=== PATIENT | female | born 1960 | race Caucasian/White ===

== ENCOUNTER 2019-12-21 16:59 | Emergency (ER) | payer OTHER ==
[2019-12-21 17:14] VITALS: BMI 24.2
[2019-12-21] MEDS ORDERED: KETOROLAC TROMETHAMINE 30 MG/1 ML VIAL IVPUSH ONE (17:42)
[2019-12-21] MEDS ORDERED: SODIUM CHLORIDE 1,000 ML IV STA (17:42)
--- NOTE | 2019-12-21 17:49 | PDOC ---
History of Present Illness - General Chief Complaint: Pain Stated Complaint: PAIN Time Seen by Provider: 12/21/19 17:23 History Source: Patient - History of Present Illness Timing/Duration: reports: getting worse Abdominal Pain Onset Location: reports: flank Past History - Medical History Allergies/Adverse Reactions: Allergies Allergy/AdvReac Type Severity Reaction Status Date / Time No Known Allergies Allergy Verified 12/21/19 17:09 Home Medications: Ambulatory Orders Cyclobenzaprine HCl [Flexeril 10 mg] 10 mg PO HS #9 tablet 12/21/19 Naproxen 500 mg PO BID #14 tablet 12/21/19 COPD: No Kidney Stones: Yes Seizures: Yes (hypo) - Psycho-Social/Smoking History Smoking History: Never smoked Have you smoked in the past 12 months: No - Substance Abuse Hx (Audit-C & DAST Scrn) How often the patient has a drink containing alcohol: Never Score: In Men: 4 or > Positive; In Women: 3 or > Positive: 0 Screen Result (Pos requires Nsg. Audit-10AR): Negative In the last yr the pt used illegal drug/Rx for NonMed reason: No Score: Yes response is considered Positive: 0 Screen Result (Positive result requires Nsg. DAST-10): Negative Review of Systems - Review of Systems Constitutional: No: Chills, Fever ABD/GI: No: Constipated, Diarrhea, Nausea, Vomiting : Yes: Flank Pain. No: Burning, Dysuria, Hematuria *Physical Exam - Vital Signs Last Vital Signs Temp Pulse Resp BP Pulse Ox 98.2 F 70 18 153/102 H 100 12/21/19 17:10 12/21/19 17:10 12/21/19 17:10 12/21/19 17:10 12/21/19 17:10 - Physical Exam General Appearance: Yes: Appropriately Dressed, Mild Distress HEENT: positive: Normal Voice Neck: positive: Supple Respiratory/Chest: negative: Respiratory Distress Gastrointestinal/Abdominal: positive: Normal Bowel Sounds, Tender (poorly localized ttp L flank), Soft. negative: Distended, Guarding, Rebound Musculoskeletal: negative: CVA Tenderness, Vertebral Tenderness Integumentary: positive: Dry, Warm Neurologic: positive: Fully Oriented, Alert, Normal Mood/Affect ED Treatment Course - LABORATORY CBC & Chemistry Diagram: 12/21/19 18:00 12/21/19 17:59 - RADIOLOGY Radiology Studies Ordered: Category Date Time Status ABDOMEN & PELVIS CT W/O CONTR [CT] Stat CT Scan 12/21/19 17:42 Ordered Medical Decision Making - Medical Decision Making 12/21/19 17:44 59-year-old female, s/p remote lumbar spine surgery, chronic LBP, thyroid disease, complicated renal stone 3 years ago needing lithotripsy, here with worsening L lower/flank pain for 3 days, more c/w her renal stone vs her chronic LBP though does report that back pain usually on the L side. No dysuria, h ematuria, nausea, vomiting fever or chills. No sensory or neuro changes see exam R/o recurrent renal stone, possible acute on chronic LBP BP elevated, possibly 2/2 pain, will rpt after pain control -pain control -IVF -labs -CT 12/21/19 19:56 Lab unremarkable, UA pending. CT read as no ureteral stone, hydro or diverticulitis, does show non-obs stone in R kidney. Pt given results, reports feeling better at this time w/ meds. Will check UA. Anticipate dc w/ pain control and pmd f/u 12/21/19 20:29 UA w/ 3+ bld, no e/o infection. Stable for dc Discharge - Discharge Information Problems reviewed: Yes Clinical Impression/Diagnosis: Flank pain Condition: Improved Disposition: HOME - Additional Discharge Information Prescriptions: Cyclobenzaprine HCl [Flexeril 10 mg] 10 mg PO HS #9 tablet Naproxen 500 mg PO BID #14 tablet - Follow up/Referral Referrals: Joseph Valdez MD [Primary Care Provider] - - Patient Discharge Instructions Additional Instructions: The cause of your back pain is unclear at this time as your labs, urine and CT did not show any cause for pain Pain might be muscular or related to back issues in the past Take medication as directed and follow-up with your PMD - Post Discharge Activity
[2019-12-21] MEDS ORDERED: KETOROLAC TROMETHAMINE 30 MG/1 ML VIAL ONE (18:00)
[2019-12-21 18:21] LABS: BASO % 0.1 % (0-2.0); EOS % 0.8 % (0-4.5); HEMATOCRIT 39.9 % (32.4-45.2); HEMOGLOBIN 13.2 GM/dL (10.7-15.3); LYMPH % 38.6 % (8-40); MCH 28.3 pg (25.7-33.7); MCHC 33.1 g/dl (32.0-36.0); MEAN CELL VOLUME 85.6 fl (80-96); MEAN PLT VOLUME 7.7 fl (7.5-11.1); MONO % 6.2 % (3.8-10.2); NEUT % 54.3 % (42.8-82.8); PLATELET COUNT 291 K/MM3 (134-434); RBC 4.67 M/mm3 (3.60-5.2); RDW 13.8 % (11.6-15.6); WHITE BLOOD COUNT 5.9 K/mm3 (4.0-10.0)
[2019-12-21 18:43] LABS: ALBUMIN 4.1 g/dl (3.4-5.0); BILIRUBIN,TOTAL 0.2 mg/dL (0.2-1); BLOOD UREA NITROGEN 13.9 mg/dL (7-18); CALCIUM 9.4 mg/dL (8.5-10.1); CREATININE 0.7 mg/dL (0.55-1.3); POTASSIUM 3.9 mmol/L (3.5-5.1); TOT PROT 7.5 g/dl (6.4-8.2)
[2019-12-21 18:56] VITALS: BP 163/89; PULSE 69; TEMP 97.5
[2019-12-21] MEDS ORDERED: morphine CARPU-JECT 4 MG/1 ML DISP.SYRIN IVPUSH ONE (19:34)
[2019-12-21] MEDS ORDERED: MORPHINE SULFATE 2 MG/ML VIAL ONE (19:38)
[2019-12-21 20:23] LABS: EPI CELLS 4 /uL (0-25.1); HYALINE CASTS 0 /uL (0-3.1); URINE APPEARANCE CLEAR; URINE BACTERIA 135 /uL (0-1359); URINE BILIRUBIN NEGATIVE (NEGATIVE); URINE COLOR YELLOW; URINE GLUCOSE (UA) NEGATIVE (NEGATIVE); URINE KETONE NEGATIVE (NEGATIVE); URINE LEUK ESTERASE NEGATIVE (NEGATIVE); URINE NITRITE NEGATIVE (NEGATIVE); URINE PROTEIN NEGATIVE (NEGATIVE); URINE RBC 10 /uL (0-23.9); URINE UROBILINOGEN 0.2 mg/dL (0.2-1.0); URINE WBC 12 /uL (0-25.8)
== END 2019-12-21 20:39 | disposition home or self-care (01) ==
LOC: JER 16:59
PROC: 3E0333Z Introduction of Anti-inflammatory into Peripheral Vein, Percutaneous Approach (ICD-10-PCS; principal; 2019-12-21)
PROC: 3E033GC Introduction of Other Therapeutic Substance into Peripheral Vein, Percutaneous Approach (ICD-10-PCS; 2019-12-21)
PROC: 3E0337Z Introduction of Electrolytic and Water Balance Substance into Peripheral Vein, Percutaneous Approach (ICD-10-PCS; 2019-12-21)
DX: R10.9 Unspecified abdominal pain (principal)
CPT/HCPCS: 36415; 74176-TC; 80053; 81003; 83690; 85025; 87086; 99285-25